=== PATIENT | female | born 1970 | race Two or more races ===

== ENCOUNTER 2022-03-22 18:59 | Emergency (ER) | payer OTHER ==
[~2022-03-22] VITALS: Ht 167.6 cm; Wt 158.8 kg
--- NOTE | 2022-03-22 19:00 | NUR ---
Placed in room 01, report given to [facility] PURDY. PT [facility], [facility] INITIALLY FOR POSSIBLE ALLERGIC REACTION TO CORTISONE SHOT, BLOOD GLUCOSE FOUND TO BE 441. VSS. NAD NOTED. AAOX4 BUT SLOW TO RESPOND AT TIMES. BOTH SIDE RAILS UP.
[2022-03-22 19:01] VITALS: BP_SYST 150
--- NOTE | 2022-03-22 19:01 | NUR ---
BIB EMS squad [facility], C/C possible allergic reaction r/t cortisone injection. Patient is DM with BS 441, placed into bed 1 for eval. Patient is AOx4, RA placed onto monitor.
--- NOTE | 2022-03-22 19:10 | NUR ---
Labs drawn and sent to lab
--- NOTE | 2022-03-22 19:10 | NUR ---
Covid swab collected and sent to lab
--- NOTE | 2022-03-22 19:10 | NUR ---
# 18 gauge angiocath placed to Right FA. Use of asceptic technique. Opsite placed over site. Blood return noted. Blood for lab drawn from site. Flushed with 10 cc of normal saline. No evidence of infiltration noted. Patient tolerated well.
--- NOTE | 2022-03-22 19:12 | NUR ---
Closing Note Report given to incoming NOC RN
[2022-03-22] MEDS ORDERED: NACL 0.9% 2,000 ML IV ONE (19:30)
--- NOTE | 2022-03-22 19:30 | NUR ---
ER at bedside examining patient.
--- NOTE | 2022-03-22 19:31 | NUR ---
PT IS AA&OX4. AFEBRILE. NAD. DENIES PAIN AT THE MOMENT. AMBULATORY W/ STEADY GAIT. SAFE & HAZARD FREE ENVIRONMENT PROVIDED. WILL CON'T TO MONITOR.
[2022-03-22 19:52] LABS: BASOPHILS % (AUTO) 0.4 % (0.0-2.0); EOSINOPHILS % (AUTO) 0.1 % (0.0-4.0); HEMATOCRIT 38.3 % (36-48); LYMPHOCYTES # (AUTO) 0.9 K/uL (1.0-5.5); LYMPHOCYTES % (AUTO) 13.5 % (20.5-51.5); MEAN CORPUSCULAR HEMOGLOBIN 30 pg (27-31); MEAN CORPUSCULAR HGB CONC 34 % (32-36); MEAN CORPUSCULAR VOLUME 89 fL (79.0-98.0); MONOCYTES # (AUTO) 0.1 K/uL (0.0-1.0); MONOCYTES % (AUTO) 0.8 % (1.7-9.3); NEUTROPHILS # (AUTO) 5.5 K/uL (1.8-7.7); NEUTROPHILS % (AUTO) 85.2 % (40.0-70.0); PLATELET COUNT (AUTO) 230 K/uL (130-430); RED BLOOD CELL COUNT(AUTO) 4.33 MIL/uL (4.2-6.2); RED CELL DISTRIBUTION WIDTH 13.8 % (9.0-15.0); WHITE BLOOD COUNT (AUTO) 6.5 K/uL (4.8-10.8)
[2022-03-22 20:07] LABS: CALCIUM 8.9 mg/dL (8.4-11.0); CREATININE 1.17 mg/dL (0.55-1.30); POTASSIUM 4.5 mmol/L (3.5-5.1)
[2022-03-22 20:25] LABS: ALBUMIN 3.2 g/dL (3.4-4.8); PHOSPHORUS 1.9 mg/dL (2.7-4.5); THYROID STIMULATING HORMONE 0.76 uIu/mL (0.36-3.74); TOTAL BILIRUBIN 0.1 mg/dL (0.0-1.0)
[2022-03-22] MEDS ORDERED: INSULIN REGULAR, HUMAN 10 UNITS/0.1 ML, 3 ML VIAL SUBCUT ONE (20:30)
--- NOTE | 2022-03-22 20:30 | NUR ---
Urine specimen collected and SENT TO LAB
--- NOTE | 2022-03-22 20:30 | NUR ---
PER PT, SHE TAKES APAP FOR HEADACHE ALL THE TIME. SHE'S NOT ALLERGIC TO APAP. PER PT, SHE'S ONLY ALLERGIC TO THE CODEINE FR TYLENOL W/ CODEINE. DR. CARTER MADE AWARE.
[2022-03-22] MEDS ORDERED: KETOROLAC TROMETHAMINE 15 MG VIAL IVP ONE (20:45)
[2022-03-22] MEDS ORDERED: ACETAMINOPHEN 500 MG TABLET PO ONE (20:45)
[2022-03-22] MEDS ORDERED: NA PHOS 15 MM in NS 250 ML IV ONE (21:00)
[2022-03-22 22:14] LABS: BILIRUBIN,URINE NEGATIVE (NEGATIVE); BLOOD, URINE NEGATIVE (NEGATIVE); CLARITY/URINE CLEAR (CLEAR); COLOR,URINE YELLOW (YELLOW); GLUCOSE,URINE 3+ (NEGATIVE); KETONES,URINE NEGATIVE (NEGATIVE); LEUKOCYTE ESTERASE ,URINE TRACE (NEGATIVE); NITRITE, URINE NEGATIVE (NEGATIVE); PROTEIN URINE NEGATIVE (NEGATIVE); UROBILINOGEN,URINE 0.2 (0.2-1.0)
[2022-03-22 22:24] LABS: BACTERIA,URINE FEW /HPF (None Seen); MUCUS,URINE None Seen /LPF (None Seen); RBC,URINE NONE SEEN /HPF (0-3)
--- NOTE | 2022-03-22 23:32 | NUR ---
ER at bedside, thorasynthesis done, and MD drained 5450 ml of fluid from patient, patient tolerated procedure well. BP105/65 ,HR88, O2SAT 98 RA, RR18, TEMP 97.8. PATIENT STABLE.Will continue to monitor
[2022-03-23] MEDS ORDERED: PROCHLORPERAZINE EDISYLATE 10 MG/2 ML VIAL IVP ONE
[2022-03-23] MEDS ORDERED: cefTRIAXone 1 GM in D5W 50 ML IV ONE ×2
[2022-03-23] MEDS ORDERED: NITR-85 PO (00:41)
[2022-03-23] MEDS ORDERED: cefTRIAXone 1 GM VIAL ONE (01:10)
[2022-03-23] MEDS ORDERED: DIPHENHYDRAMINE INJ 50 MG/ML VIAL IVP ONE (02:00)
[2022-03-23] MEDS ORDERED: DIPHENHYDRAMINE HCL 50 MG CAPSULE ONE (02:04)
[2022-03-23 04:50] VITALS: BP_SYST 138
--- NOTE | 2022-03-23 05:01 | NUR ---
Patient given written and verbal discharge instructions and verbalizes understanding. ER MD discussed with patient the results and treatment provided. Patient in stable condition. ID arm band removed. IV catheter removed intact and dressing applied, no active bleeding. Rx of MACROBID given. Patient educated on pain management and to follow up with PMD. Pain Scale 0/10. Opportunity for questions provided and answered. Medication side effect fact sheet provided.
== END 2022-03-23 05:01 | disposition home or self-care (01) ==
LOC: SED 18:59
DX: E11.65 Type 2 diabetes mellitus with hyperglycemia (principal); R73.9 Hyperglycemia, unspecified; E83.39 Other disorders of phosphorus metabolism; I10 Essential (primary) hypertension; Z88.5 Allergy status to narcotic agent; Z88.6 Allergy status to analgesic agent; Z79.899 Other long term (current) drug therapy; Z20.822 Contact with and (suspected) exposure to COVID-19
CPT/HCPCS: 99285; 96365; 70450; 96361; 96375 ×2; 87426; 80053; 81000; 82962; 83735; 84100; 84443; 85025; 84484; 36415; 93005; 76376; 96372; 87804 ×2; 96367; J1885; J7050; J7030; J0696; J1200; J0780; Q0163